=== PATIENT | male | born 1985 | race African-American/Black ===

== ENCOUNTER 2017-07-18 18:53 | Emergency (ER) | payer OTHER ==
--- NOTE | 2017-07-18 19:20 | PDOC ---
Rapid Medical Evaluation Time Seen by Provider: 07/18/17 19:17 Medical Evaluation: 07/18/17 19:17 I have performed a brief in-person evaluation of this patient. The patient presents with a chief complaint of: R ear pain x 2 days. Recent dx of IDDM Pertinent physical exam findings:deferred to FT provider I have ordered the following:nothing The patient will proceed to the ED for further evaluation.
[2017-07-18 19:21] VITALS: BP 137/79; PULSE 82; TEMP 99; BMI 43.7
--- NOTE | 2017-07-18 19:48 | PDOC ---
History of Present Illness - General Chief Complaint: Ear Problem Stated Complaint: EAR PAIN Time Seen by Provider: 07/18/17 19:17 History Source: Patient Exam Limitations: No Limitations - History of Present Illness Initial Comments: 07/18/17 19:39 HPI: This 31-year-old male presents to the emergency room complaint of right ear pain Chief Compliant: Right ear pain Past History - Past Medical History Allergies/Adverse Reactions: Allergies Allergy/AdvReac Type Severity Reaction Status Date / Time No Known Allergies Allergy Verified 07/18/17 19:20 Home Medications: Ambulatory Orders Amox-Tr/K Cl [Augmentin - 875Mg Tablet] 1 tab PO BID #14 tablet 07/18/17 Ofloxacin Otic [Floxin Otic -] 10 drop AD BID #1 bottle 07/18/17 - Suicide/Smoking/Psychosocial Hx Smoking History: Never smoked Have you smoked in the past 12 months: No Information on smoking cessation initiated: No Hx Alcohol Use: No Drug/Substance Use Hx: No Review of Systems - Review of Systems Able to Perform ROS?: Yes Comments:: 07/18/17 19:48 General statement: Hematology: neg history of bleeding/blood thinners Skin: Neg for lesions, rash, bruising. HEENT: Neg symptoms with positive right ear pain Respiratory: Neg SOB or difficulty in breathing Cardiac: Neg chest pain GI: Neg pain, n/v : Neg problems on voiding MS: Neg for joint pain/stiffness, no edema Neuro: Neg for LOC, weakness, Endocrine: Neg for excess thirst/hunger, cold/heat intolerance, excess sweating Allergies: Neg for allergies *Physical Exam - Vital Signs Last Vital Signs Temp Pulse Resp BP Pulse Ox 99.0 F 82 16 137/79 100 07/18/17 19:16 07/18/17 19:16 07/18/17 19:16 07/18/17 19:16 07/18/17 19:16 - Physical Exam Comments: 07/18/17 19:49 General Appearance: This well appearing V/S: hemodynamically stable, afebrile Skin: WNL of pt's skin color, no signs of pallor, mottling, cyanosis Head:symmetrical Eyes: EOM's intact, PERRLA Ears: Positive right ear pain, right ear canal is red, erythematous, no drainage , difficult to see past to the TM Nose: patent Throat: lips, teeth, gums, tongue, buccal mucos pink and moist Lungs: Chest symmetry equal. Cap refill <3 seconds. Lung sounds clear Cardiac: PMI at R 4MCL space, pos S1 and S2, regular rate. Abdomen: Soft, round, nontender : Not observed Muscularskeletal: Gait steady, ambulated in to ER, no edema +PMS Neuro: AAOx3, cognitively intact, speech clear and appropriate. Medical Decision Making - Medical Decision Making 07/18/17 19:50 Seen and examined. Patient is found to have an otitis externa and possible otitis media. Difficult to see the tympanic membrane due to the swelling and redness noted in the in the ear canal. At this time I will treat him with oral antibiotics as well as some eardrops. *DC/Admit/Observation/Transfer Diagnosis at time of Disposition: Otitis media Qualifiers: Otitis media type: unspecified Chronicity: acute Qualified Code(s): H66.90 - Otitis media, unspecified, unspecified ear Otitis externa Qualifiers: Otitis externa type: unspecified type Chronicity: acute Laterality: right Qualified Code(s): H60.501 - Unspecified acute noninfective otitis externa, right ear - Discharge Dispostion Disposition: HOME Condition at time of disposition: Stable Admit: No - Referrals - Patient Instructions Printed Discharge Instructions: DI for Otitis Externa Additional Instructions: Discharge instructions 1. Please follow up with your primary physician within the next few days and explain that you have been seen here in the Emergency Room. 2. If you experience any worsening of symptoms, such as worsening pain or drainage to the ear please return to the ER 3. Rest, do not stick anything in your ear, this includes Q-tips. Complete antibiotics as prescribed 4. Drink plenty of water - Post Discharge Activity Forms/Work/School Notes: Back to Work
== END 2017-07-18 20:03 | disposition home or self-care (01) ==
LOC: JERFT 18:53
DX: H66.91 Otitis media, unspecified, right ear (principal); H60.501 Unspecified acute noninfective otitis externa, right ear
CPT/HCPCS: 99281-25

== ENCOUNTER 2018-01-28 18:50 | Emergency (ER) | payer OTHER ==
[2018-01-28 18:53] VITALS: BP 139/83; PULSE 94; TEMP 98.1; BMI 45.0
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
--- NOTE | 2018-01-28 19:25 | PDOC ---
History of Present Illness - General Chief Complaint: Pain, Acute Stated Complaint: LT KNEE PAIN Time Seen by Provider: 01/28/18 18:52 - History of Present Illness Initial Comments: 01/28/18 19:22 32-year-old male without comorbidities presents for evaluation of left knee pain. 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 He points to the medial aspect of the left knee as the area of his discomfort Past History - Past Medical History Allergies/Adverse Reactions: Allergies Allergy/AdvReac Type Severity Reaction Status Date / Time No Known Allergies Allergy Verified 07/18/17 19:20 Home Medications: Ambulatory Orders NK [No Known Home Medication] 01/28/18 COPD: No - Suicide/Smoking/Psychosocial Hx Smoking History: Never smoked Have you smoked in the past 12 months: No Hx Alcohol Use: No Drug/Substance Use Hx: No Review of Systems - Review of Systems Musculoskeletal: Yes: Joint Pain All Other Systems: Reviewed and Negative *Physical Exam - Vital Signs Last Vital Signs Temp Pulse Resp BP Pulse Ox 98.1 F 94 H 18 139/83 98 01/28/18 18:51 01/28/18 18:51 01/28/18 18:51 01/28/18 18:51 01/28/18 18:51 - Physical Exam Comments: Left knee skin color and temperature are normal. He has full range of motion of the knee without discomfort full range of motion of the hip and ankle. Mild medial joint line tenderness no lateral joint line tenderness no evidence of instability no crepitation no patellofemoral apprehension thigh and calf there soft and nontender negative straight leg raise test is neurovascularly intact right knee is normal NVID 01/28/18 19:23 ED Treatment Course - RADIOLOGY Radiology Studies Ordered: Category Date Time Status KNEE 3 POS-LEFT [RAD] Stat Radiology 01/28/18 19:05 Taken Medical Decision Making - Medical Decision Making X-rays of the left knee show no evidence of fracture trauma destructive process. 01/28/18 19:24 *DC/Admit/Observation/Transfer Diagnosis at time of Disposition: Contusion of left knee Qualifiers: Encounter type: initial encounter Qualified Code(s): S80.02XA - Contusion of left knee, initial encounter - Discharge Dispostion Disposition: HOME Condition at time of disposition: Stable Decision to Admit order: No - Referrals Referrals: Vlad Mejia MD [Staff Physician] - - Patient Instructions Printed Discharge Instructions: Contusion Additional Instructions: Return to the emergency room should symptoms worsen or go unresolved. Follow-up with orthopedic surgery in 1-2 days for further evaluation and treatment options. May take Tylenol and Motrin as directed for pain and continued ice her knee for 20 minutes at a time 5-6 times a day. - Post Discharge Activity
--- NOTE | 2018-01-29 15:06 | PDOC ---
Patient Follow-up (Call Back) - Post ED Follow - Up Chief Complaint: Injury Condition at time of discharge: Stable Disposition at time of original discharge: HOME Reason for Call Back: Radiology (Notified by radiology of avulsion fracture along the inferior margin of the patella with disruption of the infrapatellar tendon and high position of the patella consistent with tendon injury. Discussed results with patient who intents to return to the ED today.)
== END 2018-01-28 19:26 | disposition home or self-care (01) ==
LOC: JERFT 18:50
DX: S80.02XA Contusion of left knee, initial encounter (principal); W21.89XA Striking against or struck by other sports equipment, initial encounter; Y93.89 Activity, other specified; Y92.89 Other specified places as the place of occurrence of the external cause
CPT/HCPCS: 73562-TC-LT-FY; 99281-25

== ENCOUNTER 2018-01-29 23:02 | Emergency (ER) | payer OTHER ==
[2018-01-29 23:10] VITALS: BP 136/77; PULSE 87; TEMP 98.2; BMI 45.1
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
--- NOTE | 2018-01-29 23:58 | PDOC ---
Attending Attestation - Resident Resident Name: Jose Maria Her - ED Attending Attestation I have performed the following: I have examined & evaluated the patient, The case was reviewed & discussed with the resident, I agree w/resident's findings & plan, Exceptions are as noted - HPI HPI: 01/30/18 00:19 The patient is a 32 year old male with no significant past medical history who presents to the ER after his L knee XR was reread with a patellar avulsion fracture. 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 Patient received a follow-up call today regarding his left knee xray, which showed an avulsion fracture along the inferior margin of the patella with disruption of the infrapatellar tendon and high position of the patella consistent with tendon injury. Denies any LE weakness or numbness. Patient returns to the ER for further evaluation. Allergies: NKA Past surgical history: None reported. Social history: No reported alcohol, drug, or cigarette use. - Physicial Exam PE: 01/30/18 01:50 GENERAL: Awake, alert, and fully oriented, in no acute distress HEAD: No signs of trauma ENT: Moist mucosa LUNGS: Breath sounds equal, clear to auscultation bilaterally. No wheezes, and no crackles HEART: Regular rate and rhythm, normal S1 and S2, no murmurs, rubs or gallops ABDOMEN: Soft, nontender, normoactive bowel sounds. No guarding, no rebound. No masses EXTREMITIES: Normal range of motion, no edema. +minimal L patellar ttp. No obvious displacement of patella. Compartments soft. No cords, erythema. 2+ L DP pulse. NOrmal sensation and strength NEUROLOGICAL: Normal speech, cranial nerves intact SKIN: Warm, Dry, normal turgor, no rashes or lesions noted. - Medical Decision Making 01/30/18 01:52 32yo M presents to ED after knee xray reread as patellar avulsion fracture with possible patellar tendon injury. Vitals wnl. Exam with patellar ttp, but LLE is NVI, compartments soft. Case discussed with Dr. Martini by Dr. Her who recommends knee immobilizer and out pt f/u. Pt in agreement with plan. I discussed the physical exam findings, ancillary test results and final diagnoses with the patient. I answered all of the patient's questions. The patient was satisfied with the care received and felt comfortable with the discharge plan and treatment plan. The patient will call their primary care physician within 24 hours to arrange follow-up and will return to the Emergency Department with any new, persistent or worsening symptoms.
== END 2018-01-30 00:19 | disposition home or self-care (01) ==
LOC: JER 23:02
PROC: 2W3RXYZ Immobilization of Left Lower Leg using Other Device (ICD-10-PCS; principal; 2018-01-29)
DX: S82.002D Unspecified fracture of left patella, subsequent encounter for closed fracture with routine healing (principal); W21.81XD Striking against or struck by football helmet, subsequent encounter; Y93.61 Activity, american tackle football; Y92.321 Football field as the place of occurrence of the external cause; Y99.8 Other external cause status
CPT/HCPCS: 99281-25